=== PATIENT | male | born 1960 | race Caucasian/White ===

== ENCOUNTER 2017-04-18 09:43 | Inpatient (IN) ==
[2017-04-18] MEDS ORDERED: 0.9 % Sodium Chloride 1,000 ML IVC ONE (10:16)
[2017-04-18] MEDS ORDERED: Ondansetron 4 MG/2 ML VIAL IVP ONE (10:16)
[2017-04-18] MEDS ORDERED: *HR* FentaNYL (PF) 100 MCG/2 ML VIAL IVP ONE ×2 (10:19→15:03)
[2017-04-18] MEDS ORDERED: Ketorolac 30 MG/ML VIAL IVP ONE (10:19)
[2017-04-18] MEDS ORDERED: MetroNIDAZOLE 500 MG/100 ML 500 MG/100 ML BAG IVPB ONE (10:29)
--- NOTE | 2017-04-18 10:29 | Emergency Department Note ---
Disposition Clinical Impression: Diverticulitis, Bile duct, common, cystic dilatation UTI (urinary tract infection) Qualifiers: Urinary tract infection type: site unspecified Hematuria presence: without hematuria Qualified Code(s): N39.0 - Urinary tract infection, site not specified Abdominal pain Qualifiers: Abdominal location: right lower quadrant Qualified Code(s): R10.31 - Right lower quadrant pain Disposition: Admitted As Inpatient Condition: Fair Referrals: NONE,PCP [Primary Care Provider] - Forms: ED Satisfaction Letter, Work/School Release Time of Disposition: 15:45 Abdominal Pain HPI - General Chief Complaint: ED Abdominal Pain Stated Complaint: here last Fri has bulging intestines Time Seen by Provider: 04/18/17 10:29 Source: patient Mode of arrival: ambulatory Limitations: no limitations Nursing Notes Reviewed: Yes Vital Signs Reviewed: Yes - History of Present Illness HPI Narrative: 56-year-old male presents complaining of right lower quadrant and left lower quadrant pain, he was diagnosed with diverticulitis about 4 days ago, he was given outpatient prescription for Cipro and Flagyl, he returns stating that his pain is considerably worse, he denies hematochezia or melena, but states he has been having loose stool, and anorexia read something he gets severe abdominal pain has trouble eating or meals, as any medical history. Reports low-grade fevers and chills, nausea diarrhea no emesis no hematochezia and no melena Pt Subjective Complaint: abdominal pain Consistency: intermittent Pain Severity: severe Pain Scale: 10 Quality: cramping, stabbing, aching Radiation: LLQ, RLQ Migration to: suprapubic Improves with: nothing Worsens with: nothing Associated symptoms: Reports: nausea. Denies: vomiting, diarrhea, fever, chills - Related Data Home Medications Medication Instructions Recorded Confirmed Aspirin 325 mg PO BID 04/18/17 04/18/17 Previous Rx's Medication Instructions Recorded Ciprofloxacin [Cipro] 500 mg PO BID #20 tablet 04/12/17 metroNIDAZOLE [Flagyl] 500 mg PO TID #30 tablet 04/12/17 Allergies Allergy/AdvReac Type Severity Reaction Status Date / Time No Known Allergies Allergy Verified 04/18/17 09:45 All systems ED: reviewed and negative except as stated. Review of Systems: As Per HPI Constitutional: Reports: fever, chills Eyes: Denies: eye pain ENT ED: Denies: ear pain Cardiovascular: Denies: chest pain, palpitations Respiratory: Denies: cough Gastrointestinal: Reports: as per HPI, abdominal pain, nausea, diarrhea. Denies : vomiting Genitourinary: Denies: urgency Musculoskeletal: Denies: back pain Integumentary: Denies: rash Neurological: Denies: headache Abdominal Pain PMH - Past Medical History Medical history: Reports: hyperlipidemia, TIA, other Male Surgical History: Reports: appendectomy, other Psychiatric history: Reports: no psych history - Social History Smoking status: Former smoker Alcohol use: Reports: rarely Drug use: Reports: marijuana Physical Exam Constitutional: alert and oriented, in NAD, vital signs reviewed and wnl HEENT: NCAT, sclera anicteric Neck: normal inspection, neck is supple, trachea midline Resp: normal chest inspection, CTA bilaterally, no resp distress CV: RRR, no m/g/r GI: normal inspection, Soft, moderate tenderness to palpation with guarding right lower quadrant. Positive Rovsing sign, no hepatosplenomegaly, Back: normal inspection, negative CVA bilaterally, no tenderness to palpation Neuro: A&O3, no gross motor or sensory deficits bilaterally MSK: normal inspection, bilateral UE and LE with normal ROM Skin: No rashes, skin warm, dry, intact - General Limitations: no limitations General appearance: alert Course Course Narrative: 56-year-old male seems to failed outpatient treatment for diverticulitis Cipro and Flagyl has having recurrent pain worsening, plan is for IV fluids antibiotics IV repeat CT scan to [place] for perforation given that he has some guarding, no history of diverticulitis in the past immunocompromise status. - Reevaluation(s) Reevaluation #1: Consultation with Dr. Adair the general surgeon, he will come to the ER to evaluate the patient, initially he tried to see the patient ER but he was offered ultrasound, he recommended the patient nothing by mouth. Ultrasound of the gallbladder given large dilated gallbladder, and 11 mm common bile duct, with no evidence of cholelithiasis, ultrasound shows similar findings, nonspecific nonobstructive, bile duct dilatation but possible need for MRCP, also diverticulosis with no diverticulitis and he has no elevated white blood cell count, even his signs and symptoms, continuing IV Cipro Flagyl awaiting surgical consult admitted to the medicine service Dr. Lynch accepting Time: 15:46 Vital Signs Temperature 98.3 F 04/18/17 09:45 Pulse Rate 86 04/18/17 09:45 Respiratory Rate 20 04/18/17 09:45 Blood Pressure 163/92 04/18/17 09:45 O2 Sat by Pulse Oximetry 98 04/18/17 09:45 Temperature 98.3 F 04/18/17 09:45 Pulse Rate 48 04/18/17 12:08 Respiratory Rate 16 04/18/17 12:08 Blood Pressure 140/88 04/18/17 12:08 O2 Sat by Pulse Oximetry 98 04/18/17 12:08 Oxygen Delivery Oxygen Delivery Room Air Abdominal Pain - Differential Diagnosis Differential Diagnosis: Likely: acute appendicitis, diverticulitis, diverticulosis - Medical Records Medical records reviewed: Yes I reviewed the patient's medical records. - Lab Data Lab results reviewed: Yes I reviewed the patient's lab results. Result diagrams: 04/18/17 10:49 04/18/17 10:49 Lab Results 04/18/17 04/18/17 04/18/17 Range/Units 10:49 10:49 10:49 WBC 8.1 (4.3-11.1) K/mcL RBC 5.77 H (4.19-5.50) M/mcL Hgb 17.3 H (12.9-16.9) g/dL Hct 52.2 H (37.5-50.1) % MCV 90.5 (83.0-100.0) fL MCH 30.0 (28.0-33.3) pg MCHC 33.1 (31.6-35.5) g/dL RDW 13.1 (11.5-14.5) % Plt Count 214 (140-400) K/mcL MPV 9.9 (9.4-12.4) fL Immature Gran % 0.5 (0-4) % Seg Neutrophils % 50.6 % Lymphocytes % 31.2 % Monocytes % 10.3 % Eosinophils % 6.8 % Basophils % 0.6 % Neutrophils # 4.1 (1.6-8.9) K/mcL Lymphocytes # 2.5 (0.6-4.6) K/mcL Monocytes # 0.8 (0.0-1.3) K/mcL Eosinophils # 0.6 (0.0-0.6) K/mcL Basophils # 0.1 (0.0-0.2) K/mcL Sodium 136 (136-145) mEq/L Potassium 3.8 (3.5-5.1) mEq/L Chloride 105 (98-107) mEq/L Carbon Dioxide 23 (23-29) mEq/L BUN 11 (6-20) mg/dL Creatinine 0.93 (0.70-1.30) mg/dL Est GFR ( Amer) > 60 (> 60) Est GFR (Non-Af Amer) > 60 (> 60) BUN/Creatinine Ratio 12 (6-26) Glucose 120 H (70-105) mg/dL Calculated Osmolality 283 (280-300) Lactic Acid 1.2 (0.5-2.2) mmol/L Calcium 9.8 (8.6-10.3) mg/dL Total Bilirubin 0.5 (0.3-1.0) mg/dL Direct Bilirubin 0.2 (0.0-0.2) mg/dL Indirect Bilirubin 0.3 (0.0-1.2) mg/dL AST 27 (13-39) Units/L ALT 26 (7-52) Units/L Alkaline Phosphatase 143 H (34-104) Units/L Serum Total Protein 8.5 (6.4-8.9) g/dL Albumin 4.2 (3.5-5.7) g/dL Globulin 4.3 H (2.4-3.5) g/dL Albumin/Globulin Ratio 1.0 L (1.1-2.2) Lipase 16 (11-82) Units/L Urine Color (Yellow) Urine Clarity (Clear) Urine pH (5.0-8.0) pH Units Ur Specific [place] (1.010-1.025) Urine Protein (Neg-Trace) mg/dL Urine Glucose (UA) (Normal) mg/dL Urine Ketones (Negative) mg/dL Urine Blood (Negative) Urine Nitrite (Negative) Urine Bilirubin (Negative) Urine Urobilinogen (Normal) mg/dL Ur Leukocyte Esterase (Negative) Urine Microscopic RBC (0-3) per hpf Urine Microscopic WBC (0-3) per hpf Ur Squamous Epith Cells (None-Few) per lpf Urine Bacteria (None-Few) per hpf Hyaline Casts (None-Few) per lpf Ur Culture Indicated? (NO) 04/18/17 Range/Units 11:18 WBC (4.3-11.1) K/mcL RBC (4.19-5.50) M/mcL Hgb (12.9-16.9) g/dL Hct (37.5-50.1) % MCV (83.0-100.0) fL MCH (28.0-33.3) pg MCHC (31.6-35.5) g/dL RDW (11.5-14.5) % Plt Count (140-400) K/mcL MPV (9.4-12.4) fL Immature Gran % (0-4) % Seg Neutrophils % % Lymphocytes % % Monocytes % % Eosinophils % % Basophils % % Neutrophils # (1.6-8.9) K/mcL Lymphocytes # (0.6-4.6) K/mcL Monocytes # (0.0-1.3) K/mcL Eosinophils # (0.0-0.6) K/mcL Basophils # (0.0-0.2) K/mcL Sodium (136-145) mEq/L Potassium (3.5-5.1) mEq/L Chloride (98-107) mEq/L Carbon Dioxide (23-29) mEq/L BUN (6-20) mg/dL Creatinine (0.70-1.30) mg/dL Est GFR ( Amer) (> 60) Est GFR (Non-Af Amer) (> 60) BUN/Creatinine Ratio (6-26) Glucose (70-105) mg/dL Calculated Osmolality (280-300) Lactic Acid (0.5-2.2) mmol/L Calcium (8.6-10.3) mg/dL Total Bilirubin (0.3-1.0) mg/dL Direct Bilirubin (0.0-0.2) mg/dL Indirect Bilirubin (0.0-1.2) mg/dL AST (13-39) Units/L ALT (7-52) Units/L Alkaline Phosphatase (34-104) Units/L Serum Total Protein (6.4-8.9) g/dL Albumin (3.5-5.7) g/dL Globulin (2.4-3.5) g/dL Albumin/Globulin Ratio (1.1-2.2) Lipase (11-82) Units/L Urine Color [place] A (Yellow) Urine Clarity Clear (Clear) Urine pH 6.0 (5.0-8.0) pH Units Ur Specific [place] > 1.030 H (1.010-1.025) Urine Protein Trace (Neg-Trace) mg/dL Urine Glucose (UA) Normal (Normal) mg/dL Urine Ketones Trace H (Negative) mg/dL Urine Blood Negative (Negative) Urine Nitrite Positive A (Negative) Urine Bilirubin Small H (Negative) Urine Urobilinogen Normal (Normal) mg/dL Ur Leukocyte Esterase Small H (Negative) Urine Microscopic RBC 5-15 H (0-3) per hpf Urine Microscopic WBC 0-3 (0-3) per hpf Ur Squamous Epith Cells Moderate H (None-Few) per lpf Urine Bacteria None Seen (None-Few) per hpf Hyaline Casts None Seen (None-Few) per lpf Ur Culture Indicated? YES A (NO) - Radiology Data Radiology results reviewed: Yes I reviewed the patient's radiology results. Abdomen/Pelvis CT 04/18/17 10:16 IMPRESSION: Dilated gallbladder and common bile duct measuring 11 mm in diameter with no obvious evidence for stone or obstruction. If further evaluation is needed recommend MRCP. Bilateral nephrolithiasis with no evidence for obstruction. Stable aneurysmal dilatation of the aorta measuring 3.2 cm. Mild constipation. Diverticulosis with no evidence for diverticulitis. RECOMMENDATIONS: Managing Abdominal Aortic Aneurysms 2.6-2.9 cm: Every 5 years* 3.0-3.4 cm: Every 3 years. 3.5-3.9 cm: Every 1 year. 4.0-4.4 cm: Every 1 year. Recommend vascular consultation. 4.5-5.4 cm: Every 6 months. Recommend vascular consultation. Greater than or equal to 5.5 cm: Referral to vascular surgeon. *For abdominal aortas with maximum diameter of 2.6-2.9 cm meeting criteria for AAA (>50% of proximal normal segment). Reference: J Vasc Surg. 2008;50(4 Suppl):S2-49 D/ / 04/18/2017 12:29:21 Praveen Hodge MD / omi Interpreting Provider: Praveen Hodge MD Gallbladder Ultrasound 04/18/17 12:28 IMPRESSION: Nonspecific common duct dilatation as seen on CT with no choledocholithiasis evident sonographically. Mild gallbladder sludge. The gallbladder appears hydropic. D/ / Taras Rosas / Taras Rosas Interpreting Provider: Taras Rosas
--- NOTE | 2017-04-18 10:43 | Emergency Department Note ---
START Narrative - START START: I examined this patient and my medical decision-making was reviewed with the Resident Physician. I agree with the documented findings, disposition and treatment plan as described except to the extent set forth below. 56-year-old male presented to the emergency room for right-sided abdominal pain that has been worsening. Patient was seen here a week ago and diagnosed with acsending diverticulitis. Patient has been on antibiotics for this but seems to be getting worse with his symptoms. will repeat CT to make sure this hasn't worsened. anticipate admission with iv antibiotics; gen surg consult
[2017-04-18 10:57] LABS: Basophils # 0.1 K/mcL (0.0-0.2); Basophils % 0.6 %; Eosinophils # 0.6 K/mcL (0.0-0.6); Eosinophils % 6.8 %; Hematocrit 52.2 % (37.5-50.1); Hemoglobin 17.3 g/dL (12.9-16.9); Immature Granulocytes % 0.5 % (0-4); Lymphocytes # 2.5 K/mcL (0.6-4.6); Lymphocytes % 31.2 %; Mean Corpuscular HGB Conc 33.1 g/dL (31.6-35.5); Mean Corpuscular Volume 90.5 fL (83.0-100.0); Mean Platelet Volume 9.9 fL (9.4-12.4); Monocytes # 0.8 K/mcL (0.0-1.3); Monocytes % 10.3 %; Neutrophils # 4.1 K/mcL (1.6-8.9); Platelet Count 214 K/mcL (140-400); Red Blood Count 5.77 M/mcL (4.19-5.50); Red Cell Distribution Width 13.1 % (11.5-14.5); Segmented Neutrophils % 50.6 %
[2017-04-18 11:17] LABS: Alanine Aminotransferase 26 Units/L (7-52); Albumin 4.2 g/dL (3.5-5.7); Alkaline Phosphatase 143 Units/L (34-104); Aspartate Amino Transferase 27 Units/L (13-39); BUN/Creatinine Ratio 12 (6-26); Bilirubin,Direct 0.2 mg/dL (0.0-0.2); Bilirubin,Indirect 0.3 mg/dL (0.0-1.2); Bilirubin,Total 0.5 mg/dL (0.3-1.0); Blood Urea Nitrogen 11 mg/dL (6-20); Calcium 9.8 mg/dL (8.6-10.3); Carbon Dioxide 23 mEq/L (23-29); Chloride 105 mEq/L (98-107); Globulin 4.3 g/dL (2.4-3.5); Glucose 120 mg/dL (70-105); Lipase 16 Units/L (11-82); Osmolality,Calculated 283 (280-300); Potassium 3.8 mEq/L (3.5-5.1); Sodium 136 mEq/L (136-145); Total Protein 8.5 g/dL (6.4-8.9); eGFR For African Americans > 60 (> 60); eGFR For Non-African Americans > 60 (> 60)
[2017-04-18 11:59] LABS: Bilirubin,Urine Small (Negative); Blood,Urine Negative (Negative); Clarity,Urine Clear (Clear); Color,Urine Orange (Yellow); Glucose,Urine (UA) Normal (Normal); Ketones,Urine Trace mg/dL (Negative); Leukocyte Esterase,Urine Small (Negative); Nitrite,Urine Positive (Negative); Protein,Urine Trace mg/dL (Neg-Trace); Specific Gravity,Urine > 1.030 (1.010-1.025); Urobilinogen,Urine Normal (Normal)
[2017-04-18 12:01] LABS: Bacteria,Urine None Seen per hpf (None-Few); Hyaline Casts,Urine None Seen per lpf (None-Few); Squamous Epithelial Cell,Urine Moderate per lpf (None-Few); WBC,Urine 0-3 per hpf (0-3)
--- NOTE | 2017-04-18 15:53 | Internal Med History&Physical ---
Date of Encounter: 04/18/17 Time of Encounter: 15:51 Assessment and Plan (1) Hyperlipidemia Current visit: Yes Status: Chronic Chronic recheck in a.m. Qualifiers: Hyperlipidemia type: pure hypercholesterolemia Qualified Code(s): E78.00 - Pure hypercholesterolemia, unspecified; E78.0 - Pure hypercholesterolemia (2) Abdominal pain Current visit: Yes Status: Acute diverticulitis will resume Flagyl and Cipro iv patient is being seen by general surgery Qualifiers: Abdominal location: right lower quadrant Qualified Code(s): R10.31 - Right lower quadrant pain (3) Bile duct, common, cystic dilatation Current visit: Yes Status: Acute Consults on for stone in CBD may need mrcp (4) Diverticulitis Current visit: Yes Status: Acute Diagnosed 4 days ago that failed outpatient by mouth antibiotic resume IV Flagyl and Cipro abdomen is unremarkable (5) UTI (urinary tract infection) Current visit: Yes Status: Acute UA shows positive nitrite but no bacteria With send for culture Qualifiers: Urinary tract infection type: site unspecified Hematuria presence: without hematuria Qualified Code(s): N39.0 - Urinary tract infection, site not specified Internal Medicine - H&P: HPI Chief complaint: RLL pain Admitted From: Emergency Dept Plans for Post Hospital Care: Home History of present illness: Mr. Claros is a 56 year old male Patient with history of high cholesterol, TIA, patient was seen in the emergency room last Saturday about 4 days ago with right lower quadrant pain and was diagnosed with diverticulitis and then sent home on Cipro and Flagyl patient took the Flagyl and Cipro but now getting worse and in left lower right lower quadrant pain with some loose stool fever and chills and he came back to the emergency room vvultrasound of the abdomen shows dilated common bile duct with gallbladder sludge general surgery has been consulted he is just in emergency room at the time I was leaving to see patient patient will be admitted and we will follow surgical recommendations in the meantime start him back on IV Cipro and Flagyl. UA shows positive nitrite but no bacteria was sent for culture labs unremarkable bilirubin is normal. Liver functions are normal Past Med Surg Social Fam HX - Past Medical History Medical history: hyperlipidemia, TIA, other Psychiatric history: no psych history - Past Surgical History Surgical History: appendectomy, orthopedic, other - Social History Smoking Status: Former smoker Smokeless Tobacco Status: Yes Alcohol use: rarely Drug use: marijuana Internal Medicine - H&P: Meds Ciprofloxacin [Cipro] 500 mg PO BID #20 tablet 04/12/17 [Rx] metroNIDAZOLE [Flagyl] 500 mg PO TID #30 tablet 04/12/17 [Rx] Aspirin 325 mg PO BID 04/18/17 [History] 3 Allergy/AdvReac Type Severity Reaction Status Date / Time No Known Allergies Allergy Verified 04/18/17 09:45 All Systems PM: A 10-system review of systems was performed and is negative for pertinent findings except as documented above in the HPI. - Constitutional Constitutional: no chills, no fever(s), no night sweats - EENT Eyes: no change in vision, no discharge, no pain, no photophobia Ears: no ear discharge, no ear pain, no tinnitus Nose, mouth and throat: no dysphagia, no nasal discharge, no neck pain, no sore throat - Cardiovascular Cardiovascular ROS IM: no chest pain, no diaphoresis, no dyspnea, no lightheadedness, no palpitations, no syncope - Respiratory Respiratory: no cough, no dyspnea, no wheezing, no excessive phlegm production - Gastrointestinal Gastrointestinal: abdominal pain, change in bowel habits - Musculoskeletal Musculoskeletal ROS IM: no numbness, no tingling - Constitutional Vitals: Temp Pulse Resp BP Pulse Ox 98.3 F 48 16 140/88 98 04/18/17 09:45 04/18/17 12:08 04/18/17 12:08 04/18/17 12:08 04/18/17 12:08 - Eye Eye exam: Present: PERRL, conjuntiva pink, sclera anicteric Pupils: Present: PERRL - Neck Neck exam general surgery: Present: supple, trachea midline. Absent: lymphadenopathy - GI/Abdominal GI/Abdominal exam: Present: soft - Extremities Exam Extremities exam: Present: warm, radial pulses palpable and symmetrical. Absent : calf tenderness, cyanotic, pedal edema Internal Med - H&P Results - Labs CBC & Chem 7: 04/18/17 10:49 04/18/17 10:49
[2017-04-18] MEDS ORDERED: Naloxone 0.4 MG/ML INJ IVP PRN (16:03)
[2017-04-18] MEDS ORDERED: Acetaminophen 325 MG TABLET PO PRN (16:03)
[2017-04-18] MEDS ORDERED: 0.9 % Sodium Chloride 1,000 ML IVC SCH (16:15)
[2017-04-18] MEDS: *HR* HYDROcodone/Acet 5/325 mg TABLET PO PRN ×2 (17:17→23:45)
--- NOTE | 2017-04-18 19:45 | General Surgery Consult Note ---
Date of Encounter: 04/18/17 Time of Encounter: 15:30 Assessment and Plan (1) Diverticulitis Current Visit: Yes Status: Acute 56M with recurrent diverticulitis, likely hinchey class I; NPO: remain NPO until pain is COMPLETEY resolved IVF IV abx pain control serial abdominal exams no acute surgery at present History of Present Illness Consult date: 04/18/17 Reason for consult: abdominal pain History of present illness: 56M presents with recurrent suprapubic pain. The patient states about 1 week prior he was evaluated and treated for abdominal pain, no associated fevers, chills, but with associated nausea, vomiting. he was treated non operatively with PO antibiotics. Even after discharge he states the pain never went away, but over the last 12-24 hours, he has experienced worse abdominal pain, poor PO intake. in addition he also reports diarrhea. due to his symptoms he presented again for evaluation. Surgery was consulted for management recommendations. All imaging and labs were interpreted and evaluated by me. Past Med Surg Social Fam HX - Past Medical History Medical history: hyperlipidemia, TIA, other Psychiatric history: no psych history - Past Surgical History Surgical History: appendectomy, orthopedic, other - Social History Smoking Status: Former smoker Smokeless Tobacco Status: Yes Alcohol use: rarely Drug use: marijuana - Additional Family History Additional family history: non contributory Medications and Allergies Ciprofloxacin [Cipro] 500 mg PO BID #20 tablet 04/12/17 [Rx] metroNIDAZOLE [Flagyl] 500 mg PO TID #30 tablet 04/12/17 [Rx] Aspirin 325 mg PO BID 04/18/17 [History] 3 Allergy/AdvReac Type Severity Reaction Status Date / Time No Known Allergies Allergy Verified 04/18/17 09:45 Review of Systems All systems PM: A 10-system review of systems was performed and is negative for pertinent findings except as documented above in the HPI. General Surgery Exam Initial Vital Signs Temp Pulse Resp BP Pulse Ox 98.3 F 86 20 163/92 98 04/18/17 09:45 04/18/17 09:45 04/18/17 09:45 04/18/17 09:45 04/18/17 09:45 - General physical appearance well developed, well nourished, no distress - Eyes normal ocular movement - ENT normocephalic - Neck no lymphadectomy - Respiratory normal expansion, normal respiratory effort - Cardiovascular Cardiovascular exam: Present: RRR - Abdomen Abdomen general surgery: Present: soft, tender Abdominal Tenderness: Present: LLQ, suprapubic - Integumentary Integumentary general surgery: Present: warm and dry - Neurologic Present: CN 2-12 grossly intact - Psychiatric Psychiatric general surgery: Present: A&Ox3 Exam Initial Vital Signs Temp Pulse Resp BP Pulse Ox 98.3 F 86 20 163/92 98 04/18/17 09:45 04/18/17 09:45 04/18/17 09:45 04/18/17 09:45 04/18/17 09:45 Results - Labs 04/18/17 10:49 04/18/17 10:49 Abnormal lab results RBC 5.77 M/mcL (4.19-5.50) H 04/18/17 10:49 Hgb 17.3 g/dL (12.9-16.9) H 04/18/17 10:49 Hct 52.2 % (37.5-50.1) H 04/18/17 10:49 Glucose 120 mg/dL (70-105) H 04/18/17 10:49 Alkaline Phosphatase 143 Units/L (34-104) H 04/18/17 10:49 Globulin 4.3 g/dL (2.4-3.5) H 04/18/17 10:49 Albumin/Globulin Ratio 1.0 (1.1-2.2) L 04/18/17 10:49 Urine Color [place] (Yellow) A 04/18/17 11:18 Ur Specific [place] > 1.030 (1.010-1.025) H 04/18/17 11:18 Urine Ketones Trace mg/dL (Negative) H 04/18/17 11:18 Urine Nitrite Positive (Negative) A 04/18/17 11:18 Urine Bilirubin Small (Negative) H 04/18/17 11:18 Ur Leukocyte Esterase Small (Negative) H 04/18/17 11:18 Urine Microscopic RBC 5-15 per hpf (0-3) H 04/18/17 11:18 Ur Squamous Epith Cells Moderate per lpf (None-Few) H 04/18/17 11:18 Ur Culture Indicated? YES (NO) A 04/18/17 11:18 All other labs normal. - Imaging CT scan - abdomen: report reviewed, image reviewed CT scan - pelvis: report reviewed, image reviewed Consult Discharge Plan - Plan Referrals: NONE,PCP [Primary Care Provider] -
[2017-04-18] MEDS: MetroNIDAZOLE 500 MG/100 ML 500 MG/100 ML BAG IVPB SCH (23:45)
[2017-04-19] MEDS: 0.9 % Sodium Chloride 1,000 ML IVC SCH ×2 (01:30→07:28)
[2017-04-19 05:35] LABS: Hematocrit 42.5 % (37.5-50.1); Mean Corpuscular HGB Conc 33.4 g/dL (31.6-35.5); Mean Corpuscular Volume 89.9 fL (83.0-100.0); Mean Platelet Volume 10.7 fL (9.4-12.4); Platelet Count 182 K/mcL (140-400); Red Blood Count 4.73 M/mcL (4.19-5.50)
[2017-04-19 05:38] LABS: Hemoglobin 14.2 g/dL (12.9-16.9)
[2017-04-19] MEDS: *HR* HYDROcodone/Acet 5/325 mg TABLET PO PRN (05:50)
[2017-04-19 05:53] LABS: Alanine Aminotransferase 17 Units/L (7-52); Albumin 3.1 g/dL (3.5-5.7); Alkaline Phosphatase 105 Units/L (34-104); Aspartate Amino Transferase 20 Units/L (13-39); BUN/Creatinine Ratio 14 (6-26); Bilirubin,Total 0.3 mg/dL (0.3-1.0); Blood Urea Nitrogen 13 mg/dL (6-20); Calcium 8.5 mg/dL (8.6-10.3); Carbon Dioxide 24 mEq/L (23-29); Chloride 111 mEq/L (98-107); Chol/HDL Ratio 4.6 (0-4.9); Cholesterol 106 mg/dL (< 200); Globulin 3.2 g/dL (2.4-3.5); Glucose 92 mg/dL (70-105); HDL Cholesterol 23 mg/dL (40-59); LDL Cholesterol,Calculated 64 mg/dL (0-99); Osmolality,Calculated 290 (280-300); Potassium 3.8 mEq/L (3.5-5.1); Sodium 140 mEq/L (136-145); Total Protein 6.3 g/dL (6.4-8.9); Triglycerides 96 mg/dL (< 150); eGFR For African Americans > 60 (> 60); eGFR For Non-African Americans > 60 (> 60)
[2017-04-19] MEDS ORDERED: *HR* Enoxaparin 40 MG/0.4 ML SYRINGE SQ SCH (06:00)
[2017-04-19 07:09] VITALS: BP 110/65
[2017-04-19] MEDS: MetroNIDAZOLE 500 MG/100 ML 500 MG/100 ML BAG IVPB SCH (07:28)
[2017-04-19] MEDS ORDERED: *HR* Morphine 2 MG/ML SYRINGE IVP PRN (08:44)
--- NOTE | 2017-04-19 10:02 | Discharge Summary ---
<Guillermo Aguero - Last Filed: 04/19/17 11:34> Date of Encounter: 04/19/17 Time of Encounter: 09:59 - Discharge Diagnosis (1) Abdominal pain Priority: Primary Status: Acute (2) Diverticulitis Priority: Secondary Status: Acute (3) Bile duct, common, cystic dilatation Priority: Secondary Status: Acute (4) Hyperlipidemia Priority: Secondary Status: Chronic - Discharge Medications Prescriptions: Ciprofloxacin [Cipro] 500 mg PO BID #10 tablet HYDROcodone/Acet 5/325 mg [[place] 5-325 mg] 1 tab PO Q6H PRN 5 Days #20 tab PRN Reason: Pain metroNIDAZOLE [Flagyl] 500 mg PO TID #15 tablet Home Medications: Aspirin 325 mg PO BID 04/18/17 [History] Ciprofloxacin [Cipro] 500 mg PO BID #10 tablet 04/19/17 [Rx] HYDROcodone/Acet 5/325 mg [[place] 5-325 mg] 1 tab PO Q6H PRN 5 Days #20 tab 04/19 [Rx] metroNIDAZOLE [Flagyl] 500 mg PO TID #15 tablet 04/19/17 [Rx] Allergies/Adverse Reactions: 3 Allergy/AdvReac Type Severity Reaction Status Date / Time No Known Allergies Allergy Verified 04/18/17 09:45 Date of admission: 04/18/17 16:03 Primary care physician: PCP NONE Discharging clinician: Guillermo Aguero Anticipated date of discharge: 04/19/17 - Patient Status Disposition: Home, Self-Care Condition: Fair Functional capacity at discharge: independent ambulation Overall status at discharge: patient is progressing back to baseline - Discharge Instructions Instructions: Low Fiber Diet (GEN) Follow Up With: Surgery [facility] [Provider Group] Rosalba Valladares THREAD INSPECTOR [Advanced Practice Nurse] - 04/25/17 11:00 am Cody Adair MD [Non-Partnered Physician] - 05/02/17 3:45 pm (hospital follow -up; diverticulitis, discuss interval colonoscopy 6-8 weeks) Additional Instructions: Please call [phone] to establish with a PCP. Take your antibiotics as directed You will need to get a follow up colonoscopy in 6-8 weeks - Diet and Activity Activity: increase activity as tolerated Diet: low fat, low cholesterol Hospital course: Mr. Claros is a 56 year old male who initially presented to ED 4 days ago with LLQ pain and was diagnosed with diverticulitis. He was discharged with flagyl/cipro. Patient presented to ED yesterday with similar complaint states that the pain had worsened. US of the abdomen in the ED showed a dilated common bile duct as well as some gallbladder sludge, but no stones. UA was also positive for nitrites, with no bacteria. LFTs were normal. Surgery was consulted and recommended conservative management of diverticulitis with continuation of Flagyl/Cipro and NPO until resolution of abdominal pain. Patient seen and examined at bedside this morning and he is sitting up and moving around the room comfortably. He states that he feels 100% better and that his abdominal pain is completely resolved. He states he is wanting to go home. Patient discharged on PO antibiotics with instructions to return if symptoms return or worsen. Will be given diet prior to discharge. Per surgery, he will follow up with them as outpatient and will need follow up colonoscopy in 6-8 weeks. - Time Spent with Patient Total time spent providing and/or coordinating discharge services: Greater than 30 minutes - Constitutional Vitals: Temp Pulse Resp BP Pulse Ox 97.7 F 45 14 110/65 94 04/19/17 07:03 04/19/17 07:03 04/19/17 07:03 04/19/17 07:03 04/19/17 07:03 General appearance: Present: cooperative, pleasant, no acute distress, answers questions appropriately - Head Head exam: Present: atraumatic, normocephalic - Eye Eye exam: Present: PERRL, conjuntiva pink, sclera anicteric - Neck Neck exam general surgery: Present: supple, trachea midline. Absent: lymphadenopathy - Respiratory Respiratory exam: Present: CTAB. Absent: accessory muscle use, rales, rhonchi, wheezes - Cardiovascular Cardiovascular exam: Present: RRR, +S1, +S2. Absent: diastolic murmur, gallop, rubs, systolic murmur - GI/Abdominal GI/Abdominal exam: Present: normal bowel sounds, soft, no peritoneal signs. Absent: distended, tenderness - Extremities Exam Extremities exam: Present: warm, radial pulses palpable and symmetrical. Absent : calf tenderness, cyanotic, pedal edema - Neurological Exam Neurological exam: Present: alert, no focal deficits. Absent: facial droop, speech deficit - Skin Skin exam: Present: dry, intact <Camille-Matovelle,Pato H - Last Filed: 04/19/17 14:28> Date of Encounter: 04/19/17 Date of admission: 04/18/17 16:03 Primary care physician: PCP NONE Hospital course: Mr. Claros is a 56 year old male - Time Spent with Patient Total time spent providing and/or coordinating discharge services: - Constitutional Vitals: Temp Pulse Resp BP Pulse Ox 97.7 F 45 14 110/65 94 04/19/17 07:03 04/19/17 07:03 04/19/17 07:03 04/19/17 07:03 04/19/17 07:03 - Attending Attestation The patient's condition improved sooner than expected. Abdominal pain likely residual from prior acute diverticulitis Time spent on this discharge 40 minutes I examined this patient and my medical decision-making was reviewed with the Resident Physician. I agree with the documented findings, disposition and treatment plan as described except to the extent set forth below.
--- NOTE | 2017-04-19 11:22 | General Surgery Progress Note ---
<Akilah Watson - Last Filed: 04/19/17 11:32> Date of Encounter: 04/19/17 Time of Encounter: 11:20 - Assessment and Plan (1) Diverticulitis Status: Acute May advance to low fiber diet as tolerated- maintain low fiber for 6-8 weeks May discharge to home with PO antibiotics Outpatient follow-up with Dr. Adair 2 weeks to discuss interval colonoscopy Subjective Patient reports: no new complaints, feels better, still having pain, pain is less, tolerating liquids well, voiding w/o difficulty, flatus, afebrile Objective Vital Signs - Last 8 Hours Temp Pulse Resp BP Pulse Ox 04/19/17 07:03 97.7 F 45 14 110/65 94 04/19/17 03:59 97.7 F 45 15 106/60 92 Intake and Output 04/18/17 04/19/17 04/19/17 23:59 07:59 15:59 Intake Total 200 / 200 1100 / 1100 0 / 0 Output Total 0 / 0 Balance 200 / 200 1100 / 1100 0 / 0 Intake: IV Fluids 200 / 200 1100 / 1100 0.9 % Sodium Chloride 1,000 ML 1000 / 1000 @ 100 mls/hr IVC .Q10H [facility] Rx#: [id number] Cipro Premix 400 MG/200 ML 400 200 / 200 mg In 200 ml @ 200 mls/hr IVPB Q12HR [facility] Rx#:[id number] Flagyl Premix 500 MG/100 ML 500 100 / 100 mg In 100 ml @ 100 mls/hr IVPB Q8HR [facility] Rx#:[id number] Oral 0 / 0 0 / 0 0 / 0 Output: Urine 0 / 0 Other: Meal NPO Percent of Meal Consumed 0% # Voids 0 Weight 83 kg Blood Glucose* 101 Patient Weight 04/19/17 23:59 Weight 83 kg - General physical appearance well developed, well nourished, no distress - Eyes normal ocular movement - ENT normal mucosa, atraumatic, normocephalic - Neck Neck exam: trachea midline - Respiratory normal expansion, normal respiratory effort, clear to auscultation - Cardiovascular Cardiovascular exam: Present: RRR - Abdomen Abdomen: Present: bowel sounds present, soft, tender (minimal) Abdominal Tenderness: suprapubic - Integumentary no rash, no growths, no abnormal pigmentation - Neurologic CN 2-12 grossly intact - Musculoskeletal normal gait, normal posture - Psychiatric oriented to time, oriented to person, oriented to place, speech is normal, memory intact - Labs 04/19/17 04:22 04/19/17 04:22 Diabetes panel 04/19/17 Range/Units 04:22 Sodium 140 (136-145) mEq/L Potassium 3.8 (3.5-5.1) mEq/L Chloride 111 H (98-107) mEq/L Carbon Dioxide 24 (23-29) mEq/L BUN 13 (6-20) mg/dL Creatinine 0.91 (0.70-1.30) mg/dL Glucose 92 (70-105) mg/dL Calcium 8.5 L (8.6-10.3) mg/dL AST 20 (13-39) Units/L ALT 17 (7-52) Units/L Alkaline Phosphatase 105 H (34-104) Units/L Albumin 3.1 L (3.5-5.7) g/dL Triglycerides 96 (< 150) mg/dL HDL Cholesterol 23 L (40-59) mg/dL Calcium panel 04/19/17 Range/Units 04:22 Calcium 8.5 L (8.6-10.3) mg/dL Albumin 3.1 L (3.5-5.7) g/dL Pituitary panel 04/19/17 Range/Units 04:22 Sodium 140 (136-145) mEq/L Potassium 3.8 (3.5-5.1) mEq/L Chloride 111 H (98-107) mEq/L Carbon Dioxide 24 (23-29) mEq/L BUN 13 (6-20) mg/dL Creatinine 0.91 (0.70-1.30) mg/dL Glucose 92 (70-105) mg/dL Calcium 8.5 L (8.6-10.3) mg/dL Adrenal panel 04/19/17 Range/Units 04:22 Sodium 140 (136-145) mEq/L Potassium 3.8 (3.5-5.1) mEq/L Chloride 111 H (98-107) mEq/L Carbon Dioxide 24 (23-29) mEq/L BUN 13 (6-20) mg/dL Creatinine 0.91 (0.70-1.30) mg/dL Glucose 92 (70-105) mg/dL Calcium 8.5 L (8.6-10.3) mg/dL Total Bilirubin 0.3 (0.3-1.0) mg/dL AST 20 (13-39) Units/L ALT 17 (7-52) Units/L Alkaline Phosphatase 105 H (34-104) Units/L Albumin 3.1 L (3.5-5.7) g/dL Consult Discharge Plan - Plan Instructions: Low Fiber Diet (GEN) Additional Instructions: Please call [phone] to establish with a PCP. Take your antibiotics as directed You will need to get a follow up colonoscopy in 6-8 weeks Referrals: Surgery [facility] [Provider Group] Rosalba Valladares CNP [Advanced Practice Nurse] - 04/25/17 11:00 am Cody Adair MD [Non-Partnered Physician] - 05/02/17 3:45 pm (hospital follow -up; diverticulitis, discuss interval colonoscopy 6-8 weeks) Prescriptions: Ciprofloxacin [Cipro] 500 mg PO BID #10 tablet HYDROcodone/Acet 5/325 mg [[place] 5-325 mg] 1 tab PO Q6H PRN 5 Days #20 tab PRN Reason: Pain metroNIDAZOLE [Flagyl] 500 mg PO TID #15 tablet - Attending Attestation For this encounter, I have reviewed the [employer]ER or PA documentation, treatment plan, and medical decision making; and I have had face to face time with this patient. <Cody Adair - Last Filed: 04/19/17 12:57> Date of Encounter: 04/19/17 - Assessment and Plan (1) Diverticulitis Status: Acute Objective Vital Signs - Last 8 Hours Temp Pulse Resp BP Pulse Ox 04/19/17 07:03 97.7 F 45 14 110/65 94 Intake and Output 04/18/17 04/19/17 04/19/17 23:59 07:59 15:59 Intake Total 200 / 200 1100 / 1100 0 / 0 Output Total 0 / 0 Balance 200 / 200 1100 / 1100 0 / 0 Intake: IV Fluids 200 / 200 1100 / 1100 0.9 % Sodium Chloride 1,000 ML 1000 / 1000 @ 100 mls/hr IVC .Q10H [facility] Rx#: [id number] Cipro Premix 400 MG/200 ML 400 200 / 200 mg In 200 ml @ 200 mls/hr IVPB Q12HR [facility] Rx#:[id number] Flagyl Premix 500 MG/100 ML 500 100 / 100 mg In 100 ml @ 100 mls/hr IVPB Q8HR [facility] Rx#:[id number] Oral 0 / 0 0 / 0 0 / 0 Output: Urine 0 / 0 Other: Meal NPO Percent of Meal Consumed 0% # Voids 0 Weight 83 kg Blood Glucose* 101 Patient Weight 04/19/17 23:59 Weight 83 kg - Labs 04/19/17 04:22 04/19/17 04:22 Diabetes panel 04/19/17 Range/Units 04:22 Sodium 140 (136-145) mEq/L Potassium 3.8 (3.5-5.1) mEq/L Chloride 111 H (98-107) mEq/L Carbon Dioxide 24 (23-29) mEq/L BUN 13 (6-20) mg/dL Creatinine 0.91 (0.70-1.30) mg/dL Glucose 92 (70-105) mg/dL Calcium 8.5 L (8.6-10.3) mg/dL AST 20 (13-39) Units/L ALT 17 (7-52) Units/L Alkaline Phosphatase 105 H (34-104) Units/L Albumin 3.1 L (3.5-5.7) g/dL Triglycerides 96 (< 150) mg/dL HDL Cholesterol 23 L (40-59) mg/dL Calcium panel 04/19/17 Range/Units 04:22 Calcium 8.5 L (8.6-10.3) mg/dL Albumin 3.1 L (3.5-5.7) g/dL Pituitary panel 04/19/17 Range/Units 04:22 Sodium 140 (136-145) mEq/L Potassium 3.8 (3.5-5.1) mEq/L Chloride 111 H (98-107) mEq/L Carbon Dioxide 24 (23-29) mEq/L BUN 13 (6-20) mg/dL Creatinine 0.91 (0.70-1.30) mg/dL Glucose 92 (70-105) mg/dL Calcium 8.5 L (8.6-10.3) mg/dL Adrenal panel 04/19/17 Range/Units 04:22 Sodium 140 (136-145) mEq/L Potassium 3.8 (3.5-5.1) mEq/L Chloride 111 H (98-107) mEq/L Carbon Dioxide 24 (23-29) mEq/L BUN 13 (6-20) mg/dL Creatinine 0.91 (0.70-1.30) mg/dL Glucose 92 (70-105) mg/dL Calcium 8.5 L (8.6-10.3) mg/dL Total Bilirubin 0.3 (0.3-1.0) mg/dL AST 20 (13-39) Units/L ALT 17 (7-52) Units/L Alkaline Phosphatase 105 H (34-104) Units/L Albumin 3.1 L (3.5-5.7) g/dL - Attending Attestation Patient seen and examined. All imaging, labs, and notes have been reviewed by me, including this one. I agree with the above assessment and plan and wish to add the following... Had long discussion concerning expected hospital course and course at home. okay for discharge with PO antibiotics; will see in clinic
== END 2017-04-19 11:42 | disposition home or self-care (01) | DRG 392 ==
LOC: 3ANU 09:43 → EMEROO 09:43 → 3ANU 16:12
PROVIDERS: ADMIT Internal Medicine Cardiovascular Disease; ATTEND Internal Medicine

== ENCOUNTER 2020-12-29 17:10 | Inpatient (IN) ==
[2020-12-29] MEDS ORDERED: Isovue-370 500 ML BOTTLE IVP ONE (17:16)
[2020-12-29 17:56] LABS: Basophils % 0.4 %; Eosinophils # 0.1 K/mcL (0.0-0.6); Eosinophils % 1.4 %; Hematocrit 46.3 % (37.5-50.1); Hemoglobin 16.6 g/dL (12.9-16.9); Lymphocytes # 0.9 K/mcL (0.6-4.6); Lymphocytes % 11.3 %; Mean Corpuscular HGB Conc 35.9 g/dL (31.6-35.5); Mean Corpuscular Hemoglobin 33.3 pg (28.0-33.3); Mean Corpuscular Volume 92.8 fL (83.0-100.0); Monocytes # 0.8 K/mcL (0.0-1.3); Monocytes % 10.8 %; Neutrophils # 5.8 K/mcL (1.6-8.9); Nucleated Red Blood Cells 0.3 /100 WBC (0); Platelet Count 213 K/mcL (140-400); Red Blood Count 4.99 M/mcL (4.19-5.50); Red Cell Distribution Width 11.9 % (11.5-14.5); Segmented Neutrophils % 75.1 %; White Blood Count 7.8 K/mcL (4.3-11.1)
[2020-12-29 18:03] LABS: Alanine Aminotransferase 31 Units/L (7-52); Albumin 3.1 g/dL (3.5-5.7); Albumin/Globulin Ratio 0.7 (1.1-2.2); Alkaline Phosphatase 80 Units/L (34-104); Aspartate Amino Transferase 30 Units/L (13-39); BUN/Creatinine Ratio 20 (6-26); Bilirubin,Total 1.3 mg/dL (0.3-1.0); Blood Urea Nitrogen 14 mg/dL (6-20); Calcium 8.5 mg/dL (8.6-10.3); Carbon Dioxide 21 mEq/L (23-29); Chloride 106 mEq/L (98-107); Globulin 4.4 g/dL (2.4-3.5); Glucose 124 mg/dL (70-105); Magnesium 1.9 mg/dL (1.6-2.6); Osmolality,Calculated 282 (280-300); Sodium 135 mEq/L (136-145); Total Protein 7.5 g/dL (6.4-8.9); Troponin I < 0.03 ng/mL (< 0.04); eGFR For African Americans > 60 (> 60); eGFR For Non-African Americans > 60 (> 60)
[2020-12-29 19:07] LABS: Influenza A PCR Negative (Negative); Influenza B PCR Negative (Negative); Resp. Syncytial Virus PCR Negative (Negative)
[2020-12-29 19:14] LABS: SARS-CoV-2 by PCR (In House) Positive (Negative)
[2020-12-29] MEDS ORDERED: Naloxone 0.4 MG/ML INJ IVP PRN (22:43)
[2020-12-29] MEDS ORDERED: Melatonin 3 MG TABLET PO PRN (22:43)
[2020-12-29] MEDS ORDERED: *HR* Promethazine 25 MG/ML VIAL IM PRN (22:43)
[2020-12-29] MEDS ORDERED: Ondansetron 4 MG/2 ML VIAL IVP PRN (22:43)
[2020-12-29] MEDS ORDERED: Acetaminophen 325 MG TABLET PO PRN (22:43)
[2020-12-30] MEDS: *HR* Enoxaparin 40 MG/0.4 ML SYRINGE SQ SCH (05:35)
[2020-12-30 06:34] LABS: Basophils % 0.2 %; Hematocrit 46.3 % (37.5-50.1); Hemoglobin 16.5 g/dL (12.9-16.9); Lymphocytes # 0.6 K/mcL (0.6-4.6); Lymphocytes % 12.7 %; Mean Corpuscular HGB Conc 35.6 g/dL (31.6-35.5); Mean Corpuscular Hemoglobin 33.5 pg (28.0-33.3); Mean Corpuscular Volume 93.9 fL (83.0-100.0); Mean Platelet Volume 10.1 fL (9.4-12.4); Monocytes # 0.2 K/mcL (0.0-1.3); Monocytes % 4.2 %; Neutrophils # 4.1 K/mcL (1.6-8.9); Platelet Count 222 K/mcL (140-400); Red Blood Count 4.93 M/mcL (4.19-5.50); Red Cell Distribution Width 11.7 % (11.5-14.5); Segmented Neutrophils % 81.9 %
[2020-12-30 06:42] LABS: INR 1.3; Prothrombin Time 14.5 Seconds (9.4-12.1)
[2020-12-30] MEDS: Dexamethasone Sodium Phos/PF 10 MG/ML VIAL IVP SCH (08:53)
[2020-12-30] MEDS: *HR* HYDROcodone/Acet 5/325 mg TABLET PO PRN ×2 (08:54→18:12)
[2020-12-30 09:41] LABS: Alanine Aminotransferase 31 Units/L (7-52); Albumin 3.2 g/dL (3.5-5.7); Albumin/Globulin Ratio 0.7 (1.1-2.2); Alkaline Phosphatase 80 Units/L (34-104); Aspartate Amino Transferase 28 Units/L (13-39); BUN/Creatinine Ratio 23 (6-26); Bilirubin,Total 0.8 mg/dL (0.3-1.0); Blood Urea Nitrogen 14 mg/dL (6-20); C-Reactive Protein 144 mg/L (Less than 10); Calcium 8.9 mg/dL (8.6-10.3); Carbon Dioxide 21 mEq/L (23-29); Chloride 107 mEq/L (98-107); Chol/HDL Ratio 6.3 (0-4.9); Cholesterol 150 mg/dL (< 200); Ferritin 739 ng/mL (20-250); Globulin 4.5 g/dL (2.4-3.5); Glucose 182 mg/dL (70-105); HDL Cholesterol 24 mg/dL (40-59); LDL Cholesterol,Calculated 100 mg/dL (< 100); Magnesium 2.2 mg/dL (1.6-2.6); Osmolality,Calculated 289 (280-300); Potassium 3.8 mEq/L (3.5-5.1); Sodium 137 mEq/L (136-145); Total Protein 7.7 g/dL (6.4-8.9); Triglycerides 129 mg/dL (< 150); eGFR For African Americans > 60 (> 60); eGFR For Non-African Americans > 60 (> 60)
[2020-12-31] MEDS: *HR* Enoxaparin 40 MG/0.4 ML SYRINGE SQ SCH (05:48)
[2020-12-31] MEDS: Dexamethasone Sodium Phos/PF 10 MG/ML VIAL IVP SCH (08:41)
[2020-12-31] MEDS ORDERED: Ipratropium 1 PUFF INHALER IH PRN (10:10)
[2020-12-31] MEDS: *HR* HYDROcodone/Acet 5/325 mg TABLET PO PRN ×2 (10:34→18:16)
[2020-12-31] MEDS: Ipratropium 1 PUFF INHALER IH SCH ×3 (10:48→20:52)
[2021-01-01] MEDS: Ipratropium 1 PUFF INHALER IH SCH ×5 (04:15→20:35)
[2021-01-01] MEDS: *HR* Enoxaparin 40 MG/0.4 ML SYRINGE SQ SCH (05:11)
[2021-01-01] MEDS: *HR* HYDROcodone/Acet 5/325 mg TABLET PO PRN ×3 (05:12→21:42)
[2021-01-01 06:30] LABS: Hematocrit 42.3 % (37.5-50.1); Mean Corpuscular HGB Conc 34.8 g/dL (31.6-35.5); Mean Corpuscular Hemoglobin 33.3 pg (28.0-33.3); Mean Corpuscular Volume 95.9 fL (83.0-100.0); Mean Platelet Volume 9.9 fL (9.4-12.4); Platelet Count 223 K/mcL (140-400); Red Blood Count 4.41 M/mcL (4.19-5.50)
[2021-01-01 06:33] LABS: Hemoglobin 14.7 g/dL (12.9-16.9); White Blood Count 9.6 K/mcL (4.3-11.1)
[2021-01-01 06:52] LABS: BUN/Creatinine Ratio 30 (6-26); Blood Urea Nitrogen 20 mg/dL (6-20); Calcium 8.4 mg/dL (8.6-10.3); Carbon Dioxide 23 mEq/L (23-29); Chloride 109 mEq/L (98-107); Glucose 137 mg/dL (70-105); Magnesium 2.1 mg/dL (1.6-2.6); Osmolality,Calculated 291 (280-300); Phosphorous 3.2 mg/dL (2.7-4.5); Potassium 3.5 mEq/L (3.5-5.1); Sodium 138 mEq/L (136-145); eGFR For African Americans > 60 (> 60); eGFR For Non-African Americans > 60 (> 60)
[2021-01-01] MEDS: Dexamethasone Sodium Phos/PF 10 MG/ML VIAL IVP SCH (08:52)
[2021-01-02] MEDS: Ipratropium 1 PUFF INHALER IH SCH ×4 (04:08→19:47)
[2021-01-02] MEDS: *HR* HYDROcodone/Acet 5/325 mg TABLET PO PRN ×3 (05:34→22:36)
[2021-01-02] MEDS: *HR* Enoxaparin 40 MG/0.4 ML SYRINGE SQ SCH (05:34)
[2021-01-02] MEDS: Dexamethasone Sodium Phos/PF 10 MG/ML VIAL IVP SCH (10:45)
[2021-01-03] MEDS: Ipratropium 1 PUFF INHALER IH SCH ×4 (03:56→21:51)
[2021-01-03] MEDS: *HR* Enoxaparin 40 MG/0.4 ML SYRINGE SQ SCH (06:19)
[2021-01-03] MEDS: *HR* HYDROcodone/Acet 5/325 mg TABLET PO PRN ×3 (06:24→22:36)
[2021-01-03] MEDS: Dexamethasone Sodium Phos/PF 10 MG/ML VIAL IVP SCH (09:46)
[2021-01-03 11:58] LABS: Basophils % 0.2 %; Eosinophils % 0.3 %; Hematocrit 44.6 % (37.5-50.1); Hemoglobin 15.4 g/dL (12.9-16.9); Immature Granulocytes % 0.9 % (0-4); Lymphocytes % 9.7 %; Mean Corpuscular HGB Conc 34.5 g/dL (31.6-35.5); Mean Corpuscular Hemoglobin 32.8 pg (28.0-33.3); Mean Corpuscular Volume 94.9 fL (83.0-100.0); Mean Platelet Volume 10.1 fL (9.4-12.4); Monocytes # 0.6 K/mcL (0.0-1.3); Monocytes % 5.8 %; Neutrophils # 8.8 K/mcL (1.6-8.9); Platelet Count 199 K/mcL (140-400); Red Cell Distribution Width 11.8 % (11.5-14.5); Segmented Neutrophils % 83.1 %; White Blood Count 10.6 K/mcL (4.3-11.1)
[2021-01-03 12:15] LABS: BUN/Creatinine Ratio 37 (6-26); Blood Urea Nitrogen 22 mg/dL (6-20); Calcium 8.5 mg/dL (8.6-10.3); Carbon Dioxide 26 mEq/L (23-29); Chloride 107 mEq/L (98-107); Glucose 137 mg/dL (70-105); Osmolality,Calculated 287 (280-300); Potassium 4.3 mEq/L (3.5-5.1); Sodium 136 mEq/L (136-145); eGFR For African Americans > 60 (> 60); eGFR For Non-African Americans > 60 (> 60)
[2021-01-04] MEDS: Ipratropium 1 PUFF INHALER IH SCH ×4 (03:55→22:00)
[2021-01-04] MEDS: *HR* Enoxaparin 40 MG/0.4 ML SYRINGE SQ SCH ×2 (06:47→21:00)
[2021-01-04] MEDS: *HR* HYDROcodone/Acet 5/325 mg TABLET PO PRN ×3 (06:50→21:01)
[2021-01-04] MEDS: Dexamethasone Sodium Phos/PF 10 MG/ML VIAL IVP SCH (09:40)
[2021-01-04] MEDS ORDERED: Isovue-370 500 ML BOTTLE IVP ONE (15:54)
[2021-01-04] MEDS ORDERED: GuaiFENesin Liq 200 MG/10 ML UDC PO PRN (21:18)
[2021-01-05] MEDS: *HR* HYDROcodone/Acet 5/325 mg TABLET PO PRN ×2 (03:24→13:00)
[2021-01-05] MEDS: Ipratropium 1 PUFF INHALER IH SCH ×3 (04:31→15:40)
[2021-01-05 07:00] VITALS: TEMP 98
[2021-01-05] MEDS: *HR* Enoxaparin 40 MG/0.4 ML SYRINGE SQ SCH (08:34)
[2021-01-05] MEDS: Dexamethasone Sodium Phos/PF 10 MG/ML VIAL IVP SCH (08:35)
[2021-01-05 10:39] LABS: Basophils % 0.2 %; Eosinophils # 0.1 K/mcL (0.0-0.6); Eosinophils % 0.6 %; Hematocrit 46.3 % (37.5-50.1); Hemoglobin 16.4 g/dL (12.9-16.9); Immature Granulocytes % 1.8 % (0-4); Lymphocytes # 1.2 K/mcL (0.6-4.6); Lymphocytes % 9.2 %; Mean Corpuscular HGB Conc 35.4 g/dL (31.6-35.5); Mean Corpuscular Hemoglobin 33.1 pg (28.0-33.3); Mean Corpuscular Volume 93.3 fL (83.0-100.0); Monocytes # 0.8 K/mcL (0.0-1.3); Monocytes % 6.6 %; Neutrophils # 10.3 K/mcL (1.6-8.9); Platelet Count 237 K/mcL (140-400); Red Blood Count 4.96 M/mcL (4.19-5.50); Red Cell Distribution Width 11.8 % (11.5-14.5); Segmented Neutrophils % 81.6 %; White Blood Count 12.6 K/mcL (4.3-11.1)
[2021-01-05 10:52] LABS: BUN/Creatinine Ratio 34 (6-26); Blood Urea Nitrogen 23 mg/dL (6-20); Calcium 8.7 mg/dL (8.6-10.3); Carbon Dioxide 23 mEq/L (23-29); Chloride 106 mEq/L (98-107); Glucose 124 mg/dL (70-105); Osmolality,Calculated 283 (280-300); Potassium 4.1 mEq/L (3.5-5.1); Sodium 134 mEq/L (136-145); eGFR For African Americans > 60 (> 60); eGFR For Non-African Americans > 60 (> 60)
[2021-01-05 11:58] VITALS: BP 156/85; PULSE 62
[2021-01-05 16:08] VITALS: O2SAT 94
[2021-01-06] MEDS ORDERED: Dexamethasone Sodium Phos/PF 10 MG/ML VIAL IVP SCH (09:00)
== END 2021-01-05 17:45 | disposition home or self-care (01) | DRG 177 ==
LOC: 3ANU 17:10 → EMEROOARM 17:10 → 3ANU 23:22 → SUATTDRO 12-30 08:19 → 2NENU 01-01 15:29
PROVIDERS: ADMIT Family Medicine; ATTEND Internal Medicine